=== PATIENT | female | born 1940 | race Caucasian/White ===

== ENCOUNTER → 2017-05-29 | Outpatient (CLI) | payer MEDICARE ==
[2016-05-14 12:30] VITALS: BP 132/68
--- NOTE | 2017-05-29 15:06 | RAD ---
DATE: 05/29/2017 EXAM: DIGITAL SCREEN BILAT W/CAD HISTORY: Routine screening COMPARISON: 05/04/2016 This study was interpreted with the benefit of Computerized Aided Detection (CAD). FINDINGS: Breast Density: SCATTERED The breast parenchyma shows scattered fibroglandular densities. Breast parenchyma level B. Punctate grouped microcalcifications identified in the right mid breast. Benign-appearing calcifications identified in the left breast. IMPRESSION: Punctate grouped microcalcifications identified in the right mid breast. Recommend spot compression bifurcation views of the right breast. BI-RADS CATEGORY: 0 INCOMPLETE: NEEDS ADDITIONAL IMAGING EVALUATION AND/OR PRIOR MAMMOGRAMS FOR COMPARISON. RECOMMENDED FOLLOW-UP: ADD ADDITIONAL IMAGING PQRS compliance statement: Patient information was entered into a reminder system with a target due date immediate recall for the next mammogram. Mammography is a sensitive method for finding small breast cancers, but it does not detect them all and is not a substitute for careful clinical examination. A negative mammogram does not negate a clinically suspicious finding and should not result in delay in biopsying a clinically suspicious abnormality. "Our facility is accredited by the [employer] Mammography [employer]."
== END | disposition home or self-care (01) ==
LOC: MAMMO 14:15
PROVIDERS: ATTEND Specialist
DX: Z12.31 Encounter for screening mammogram for malignant neoplasm of breast (principal)
CPT/HCPCS: G0202; 77067

== ENCOUNTER → 2017-06-04 | Outpatient (CLI) | payer MEDICARE ==
[2016-05-14 12:30] VITALS: BP 132/68
--- NOTE | 2017-06-04 14:27 | RAD ---
DATE: 06/04/2017 EXAM: DIGITAL DIAGNOSTIC RT HISTORY: Indeterminate calcifications right breast COMPARISON: Screening examination 6 days ago. This study was interpreted with the benefit of Computerized Aided Detection (CAD). FINDINGS: Breast Density: SCATTERED The breast parenchyma shows scattered fibroglandular densities. Breast parenchyma level B. Additional images were obtained. Indeterminate calcifications in the right breast are confirmed. Biopsy, under stereotactic guidance, is recommended. The findings and recommendation for biopsy were communicated, by me, to the patient. IMPRESSION: Indeterminate calcifications right breast. Stereotactic biopsy recommended BI-RADS CATEGORY: 4 SUSPICIOUS ABNORMALITY-BIOPSY SHOULD BE CONSIDERED RECOMMENDED FOLLOW-UP: BIO BIOPSY RECOMMENDED PQRS compliance statement: Patient information was entered into a reminder system with a target due date soon for the next mammogram. Mammography is a sensitive method for finding small breast cancers, but it does not detect them all and is not a substitute for careful clinical examination. A negative mammogram does not negate a clinically suspicious finding and should not result in delay in biopsying a clinically suspicious abnormality. "Our facility is accredited by the [employer] Mammography [employer]."
== END | disposition home or self-care (01) ==
LOC: MAMMO 13:17
PROVIDERS: ATTEND Specialist
DX: R92.1 Mammographic calcification found on diagnostic imaging of breast (principal)
CPT/HCPCS: G0206; 77065

== ENCOUNTER → 2017-08-21 | Outpatient (CLI) | payer MEDICARE ==
[2016-05-14 12:30] VITALS: BP 132/68
--- NOTE | 2017-08-21 16:40 | RAD ---
Bone densitometry scan, 08/21/2017: History: Ovarian failure, osteoporosis screening The lumbar spine and right hip were examined utilizing a DEXA technique. The bone mineral density in the lumbar spine as measured from the L1-L4 levels is 1.12 g/sq cm. This yields a T score of -0.5 which is in the normal range. Extensive hypertrophic degenerative change in the lower lumbar spine is probably elevating this measurement into the normal range. The total T score at the right hip is -2.5 compatible with osteoporosis. This has worsened since 06/30/2015 at which time the total T score at the left hip was -1.5. This probably more accurately reflects the patient's overall bone mineral density status. IMPRESSION: Osteoporosis at the right hip.
== END | disposition home or self-care (01) ==
LOC: DXRAD 13:47
PROVIDERS: ATTEND Nurse Practitioner Family
DX: Z13.820 Encounter for screening for osteoporosis (principal); E28.39 Other primary ovarian failure; M81.0 Age-related osteoporosis without current pathological fracture
CPT/HCPCS: 77080

== ENCOUNTER → 2018-02-02 | Outpatient (CLI) | payer MEDICARE ==
[2016-05-14 12:30] VITALS: BP 132/68
--- NOTE | 2018-02-02 15:40 | RAD ---
CT abdomen and pelvis without contrast History: Microhematuria, renal stone. Comparison: None. Technique: Helical CT of the abdomen and pelvis was performed without intravenous or oral contrast. Axial, sagittal, and coronal reconstructions were obtained. One or more of the following individualized dose reduction techniques were utilized for the study: Automated exposure control Adjustment of mA and/or kV according to patient's size Use of iterative reconstruction technique. Findings: Evaluation of the solid organs is limited by lack of intravenous contrast. Evaluation of enteric structures may be limited by lack of oral contrast. Liver, spleen, pancreas, and bilateral adrenal glands are unremarkable. There is no evidence of bowel obstruction. No free air or free fluid is identified in the abdomen or pelvis. Appendix appears within normal limits. Uterus demonstrates some calcifications and heterogeneity, probably from leiomyomata. Urinary bladder wall is borderline thickened at 5 mm. Colonic diverticulosis is noted, but no diverticulitis is appreciated. Gallbladder is not seen and is presumably absent. Right kidney demonstrates 1 mm nonobstructing nephrolith. Left kidney demonstrates a low-density lesion measuring 7 mm, not adequately characterized. Levoconvex degenerative scoliosis of the spine is seen. There is grade 1 spondylolisthesis at L3-4, L4-5, and L5-S1 from facet hypertrophy. Impression: 1. Nonobstructive right nephrolith. 2. Left kidney demonstrates subcentimeter low-density lesion, not adequately characterized. 3. Borderline wall thickening of the urinary bladder, nonspecific. Correlate for any history of cystitis. 4. Leiomyomatous uterus.
== END | disposition home or self-care (01) ==
LOC: CT 14:56
PROVIDERS: ATTEND Specialist
DX: N20.0 Calculus of kidney (principal); D25.9 Leiomyoma of uterus, unspecified; M41.86 Other forms of scoliosis, lumbar region; M43.17 Spondylolisthesis, lumbosacral region; K57.30 Diverticulosis of large intestine without perforation or abscess without bleeding; I10 Essential (primary) hypertension; E78.00 Pure hypercholesterolemia, unspecified
CPT/HCPCS: 74176

== ENCOUNTER → 2018-12-21 | Outpatient (CLI) | payer MEDICARE ==
[2016-05-14 12:30] VITALS: BP 132/68
--- NOTE | 2018-12-21 16:49 | RAD ---
3 view study of both knees and AP standing view of both knees Clinical indications: Constant bilateral knee stiffness and knee pain. History of knee replacement. COMPARISON: None available. Right knee: Total right knee arthroplasty is evident which is well aligned. No loosening or lytic process is evident. No acute fracture is seen. No knee joint effusion is seen. Left knee: Total left knee arthroplasty is evident which is well aligned. No loosening or lytic process is seen. No acute fracture is evident. No knee joint effusion is seen. IMPRESSION: Bilateral total knee arthroplasties which are well aligned. No acute osseous abnormality is evident. Note-there are small calcifications involving both knee joints. This may be related to previous surgery but could be seen with a crystalline deposition disease including CPPD or calcific synovitis. Electronically signed by: Luis A See MD (12/21/2018 4:46 PM) [facility]
== END | disposition home or self-care (01) ==
LOC: RAD 15:08
PROVIDERS: ATTEND Orthopaedic Surgery
DX: M25.662 Stiffness of left knee, not elsewhere classified (principal); M25.661 Stiffness of right knee, not elsewhere classified; Z96.653 Presence of artificial knee joint, bilateral
CPT/HCPCS: 73562; 73565